=== PATIENT | male | born 1965 | race Caucasian/White ===

== ENCOUNTER 2024-08-22 09:21 | Outpatient (AMB) | payer BC, SELFPAY ==
[2024-08-22 09:31] VITALS: BP 134/92; PULSE 97; TEMP 37.1; O2SAT 100; BMI 31.0
--- NOTE | 2024-08-22 09:31 | AM.OFFWIN_ITS ---
Intake Vital Signs 08/22/24 09:31 Height 5 ft 8 in Weight 204 lb BMI 31.0 BP 134/92 H Blood Pressure Location Lt brachial Position Sitting Pulse 97 Pulse Source Pulse Oximeter Temp 98.7 F Temp Source Oral Pulse Oximetry (%) 100 Oxygen Delivery Method Room Air Intake Visit Reasons: [employer]-broken tooth, Infection? Intake Note: Patient just finished drinking a Evomail[employer] energy drink. Allergies No Known Allergies Allergy (Verified 08/22/24 09:35) HPI HPI Comments History of Present Illness Details This is a 59-year-old male presenting to the walk-in clinic with left- sided facial swelling and concern for dental infection. He states he chipped a tooth while eating a sandwich yesterday and then developed dental pain and left- sided facial swelling today. He denies any fevers or chills. He is otherwise feeling well without any chest pain, shortness of breath, abdominal pain, or nausea/vomiting/diarrhea. Patient states he has a dentist but has not been seen in a few years. Review of Systems Const All systems reviewed & are unremarkable except as noted in HPI and below Reports no additional complaints Eyes Reports no additional complaints ENT Reports no additional complaints Card Reports no additional complaints Resp Reports no additional complaints GI Reports no additional complaints Reports no additional complaints Musc Reports no additional complaints Skin/Breast Reports system reviewed and no additional complaints, except as documented Neuro Reports no additional complaints Psych Reports no additional complaints Endo Reports no additional complaints Andrews/Lymph Reports no additional complaints Aller/Immun Reports no additional complaints Physical Exam Vital Signs: Last Vital Signs Temp 98.7 F 08/22/24 09:31 Pulse 97 08/22/24 09:31 BP 134/92 H 08/22/24 09:31 Pulse Ox 100 08/22/24 09:31 Oxygen Delivery Method Room Air 08/22/24 09:31 BMI result Body Mass Index 31.0 Const Other: Vital signs reviewed. Constitutional: Non-toxic appearing. No acute distress. Well-developed and we ll-nourished. HEENT: Normocephalic and atraumatic. Moist mucous membranes. No pharyngeal erythema or exudates. PERRL/EOMI. There is swelling and erythema and tenderness to palpation of the right upper gingiva. There is mild left-sided facial swelling. Skin: Warm and dry. No rashes or lesions noted. Neck: Full and painless range of motion. No cervical lymphadenopathy. Cardio: Regular rate. No lower extremity edema. No JVD. Pulmonary: No respiratory distress. No accessory muscle usage. Musculoskeletal: Normal range of motion in joints throughout the body. No deformity or other signs of injury. Neuro: Alert and oriented x4. Cranial nerves 2-12 grossly intact. No focal deficits appreciated. Psych: Normal mood and affect. Assessment & Plan Assessment & Plan (1) Dental infection: Code(s): K04.7 - Periapical abscess without sinus Plan: This is a 59-year-old male who presented to the walk-in clinic with left-sided facial swelling and concern for dental infection after he chipped his tooth yesterday. On physical examination, there is swelling, erythema, and tenderness to palpation and some mild fluctuance/induration of the left upper gingiva. History and physical most consistent with suppurative odontogenic infection, ? dental abscess. Patient was sent home on p.o. amoxicillin/clavulanate 875/125 mg twice daily x 10 days as well as chlorhexidine mouthwash twice daily. He was instructed to call his dentist upon leaving today to make an urgent/emergent appointment for further evaluation. He was instructed to proceed directly to the emergency room if he were to develop fever/chills or worsening facial swelling. Patient verbalized understanding and is agreeable with the plan. Medications: New amoxicillin-pot clavulanate 875-125 mg 1 tab PO BID 20 tabs 0RF chlorhexidine gluconate 0.12% 15 mL mucous membrane BID 300 mL 0RF Coding Level of Care Code New Pt Level 3 (48136) Diagnoses Dental infection K04.7
== END 2024-08-22 10:07 | disposition home or self-care (01) ==
LOC: HO.HMCWIC 09:21
PROVIDERS: Visit Provider Physician Assistant Medical
DX: K04.7 Periapical abscess without sinus (principal)

== ENCOUNTER → 2024-08-22 09:21 | Outpatient (BNVA) | payer BC, SELFPAY | PROVIDERS: Visit Provider Physician Assistant Medical ==